=== PATIENT | female | born 1980 | race Caucasian/White ===

== ENCOUNTER 2016-08-26 00:01 | Emergency (ER) | payer OTHER ==
[~2016-08-26] VITALS: Ht 157.5 cm; Wt 84.1 kg
[2016-08-26 00:03] VITALS: BP 125/72; PULSE 107; RESP 16; O2SAT 98
--- NOTE | 2016-08-26 00:23 | ED.REPORT ---
HPI-General Illness Date of Service Aug 26, 2016 ED Provider: Conner Washington MD Patient is a 36 year old female with a history of asthma who presents to the ED with flu-like symptoms for the past 2 weeks. The patient has been using an inhaler at home for her persistent cough. She reports vomiting 2x due to cough and states that she is unable to sleep. She reports associated sore throat, nasal congestion, headache, and hoarse voice. She denies a fever or ear pain. Nursing Notes Stated Complaint: COUGH Chief Complaint: FLU/Cold Symptoms Nursing Notes Reviewed: Yes Allergies: Coded Allergies: prochlorperazine (Verified Allergy, Severe, MOUTH SWELLS, 08/26/16) Kiwi (Verified Allergy, Intermediate, TONGUE SWELLING, 08/26/16) Wheat (Verified Allergy, Intermediate, INTOLERANCE, 08/26/16) latex (Verified Allergy, Intermediate, LOCALIZED RASH, 08/26/16) omeprazole (Verified Allergy, Intermediate, ITCHING OF MOUTH, 08/26/16) pineapple (Verified Allergy, Intermediate, TONGUE SWELLING, 08/26/16) Penicillins (Verified Allergy, Unknown, FAMILY STRONG REACTION, 08/26/16) Scheduled Prednisone (PredniSONE) 20 Mg Tablet 60 MG PO DAILY Scheduled PRN Benzonatate (Tessalon Perle) 100 Mg Capsule 200 MG PO TID PRN PRN For Cough General Time Seen by MD: 00:23 Chief Complaint Cough, Flu-like illness Hx Obtained From: Patient Arrived By: Walk-in Sudden in Onset?: No Onset Occurred: More than a week ago... (2 weeks) Symptom Duration: Waxes and wanes Location: : Head Quality: Painful Severity: Current: Mild Severity: Maximum: Mild Recent Healthcare: No recent doctor visit, No recent hospitalization Past Medical History Past Medical History Reports: Asthma Past Surgical History none reported Smoking History Unknown if Ever Smoker Social History Alcohol Use: "Social" Other Social History: Good social support, Local resident Ambulatory Status Independent Review of Systems Full Review of Systems Constitutional: Denies: Fever Ears / Nose / Throat: Reports: Nasal congestion, Sore throat, Denies: Earache bilateral Respiratory: Reports: Non-productive cough Neurologic: Reports: Headache Complete sys rev & neg: except as marked. Physical Exam Vital Signs Vital Signs Date Time Temp Pulse Resp B/P Pulse Ox O2 Delivery O2 Flow Rate FiO2 08/26/16 02:17 96 20 112/72 99 Room Air 08/26/16 01:24 72 18 99 Room Air 08/26/16 00:03 36.6 107 16 125/72 98 Room Air Initial VS: Reviewed Neck: Supple, Full range of motion Abdomen / GI: Soft, Non-tender, No guarding, No rebound Extremities: Vascular intact, Neuro intact, No swelling Skin: Warm, Dry, No cyanosis Neurologic: Alert, Oriented, Nonfocal Psychiatric: Mood/affect normal, Behavior normal, Normal thought content General/Constitutional: Awake, Alert, No acute distress Head / Eyes: Normocephalic, PERRL, Conjunctiva NL ENT: Airway patent, Pharynx NL, Tympanic membs NL Respiratory / Chest: Breath sounds NL, Breath sounds = bilat, No respiratory distress, No rales, No rhonchi, No wheezing harsh bronchospastic cough Cardiovascular: Heart rate NL, Regular rhythm, Heart sounds NL Re-Eval/Medical Decision Med Decision/Clinical Course 36-year-old with background of low-grade asthma presents with an upper respiratory infection and increased asthma symptoms. Improved here with very home with brief prednisone course, continue albuterol, but no indication for antibiotics. Source of Hx: Old records Time of Eval: 02:15 Patient Status: Condition improved Re-Evaluation/Progress Note: Patient is improved after breathing treatment. Patient understands and agrees with the plan to be discharged home. Discharge instructions and follow-up discussed. All questions were addressed. Return to the ED warnings given. Counseled Regarding: Diagnosis, Need for follow-up, When/why to return to ED Discharge & Departure Primary Impression: Reactive airway disease Asthma severity: mild intermittent Asthma complication type: with acute exacerbation Qualified Code: J45.21 - Mild intermittent asthma with (acute) exacerbation Disposition: Home Discharge Condition All VS Reviewed: Yes Condition: Stable Patient Instructions: Reactive Airways Disease (ED) Additional Instructions: Prednisone three tabs daily for five days Continue albuterol two puffs with spacer every four hours for cough Tessalon Perles three times daily if needed for cough. Follow up with your doctor in the office. Return if any worsening of her breathing or other new issues of concern Referrals: Sola Orellana MD (PCP) Scribe Attestation Portions of this note were transcribed by Yesenia Freedman. IDr. Washington personally performed the history, physical exam and medical decision-making; I reviewed and confirmed the accuracy of the information in the transcribed note. Signed by: Bartolome Lin, 08/26/2016 0217 copies to: Sola Orellana MD, Christopher W MD Aug 26, 2016 00:23 Yesenia Freedman Aug 26, 2016 00:43
[2016-08-26] MEDS ORDERED: Albuterol-Ipratropium 3 mL Inhalation Solution NEB ONE (01:15)
[2016-08-26] MEDS ORDERED: Albuterol 2.5 mg/3 mL Inhalation Solution NEB ONE (01:15)
[2016-08-26 01:24] VITALS: PULSE 72; RESP 18; O2SAT 99
[2016-08-26] MEDS ORDERED: BENZ-12 PO (02:03)
[2016-08-26] MEDS ORDERED: Dexamethasone 20 mg/2 mL Oral Solution PO ONE (02:05)
[2016-08-26] MEDS ORDERED: PRE20 PO (02:05)
[2016-08-26 02:17] VITALS: BP 112/72; PULSE 96; RESP 20; O2SAT 99
== END 2016-08-26 02:19 | disposition home or self-care (01) ==
LOC: SED 00:01
DX: J45.21 Mild intermittent asthma with (acute) exacerbation (principal); Z88.8 Allergy status to other drugs, medicaments and biological substances; Z88.0 Allergy status to penicillin
CPT/HCPCS: 94644; 99284; J7613; J7620

== ENCOUNTER 2016-09-02 21:46 | Emergency (ER) | payer OTHER ==
[~2016-09-02] VITALS: Ht 157.5 cm; Wt 85.5 kg
[~2016-09-02 21:46] MED LIST: BENZ-12 PO; PRE20 PO
[2016-09-02 21:55] VITALS: BP 126/77; PULSE 92; RESP 16; O2SAT 99
[2016-09-02 22:38] LABS: BASOPHILS % (AUTO) 0.2 % (0-3); EOSINOPHILS % (AUTO) 0.9 % (0-5); MONOCYTES % (AUTO) 6.8 % (4-12); Mean Corpuscular Hemoglobin 27.2 pg (27.0-35.0); Mean Corpuscular Volume 83.3 fL (81-100); NEUTROPHILS % (AUTO) 62.4 % (40-74); Platelet Count 279 bil/L (150-400)
[2016-09-02 23:00] LABS: Magnesium 2.4 mg/dL (1.6-2.6)
--- NOTE | 2016-09-02 23:08 | ED.REPORT ---
HPI-Abd Pain F Under 40 Date of Service Sep 02, 2016 ED Provider: Jose Goyal MD Pt is a 36 year old female presenting to the ED complaining of severe abdominal pain onset after taking Prednisone. Associated symptoms include a headache. She was seen in the ER 1 week ago for an upper respiratory virus and started on Prednisone. Pt was seen in this morning for similar symptoms and had a negative strep test. She reports taking Zantac and Mylanta without relief. Nursing Notes Stated Complaint: UPSET STOMACH Chief Complaint: Female Abdominal Pain Nursing Notes Reviewed: Yes Allergies: Coded Allergies: prochlorperazine (Verified Allergy, Severe, MOUTH SWELLS, 09/02/16) Kiwi (Verified Allergy, Intermediate, TONGUE SWELLING, 09/02/16) Wheat (Verified Allergy, Intermediate, INTOLERANCE, 09/02/16) latex (Verified Allergy, Intermediate, LOCALIZED RASH, 09/02/16) omeprazole (Verified Allergy, Intermediate, ITCHING OF MOUTH, 09/02/16) pineapple (Verified Allergy, Intermediate, TONGUE SWELLING, 09/02/16) Penicillins (Verified Allergy, Unknown, FAMILY STRONG REACTION, 09/02/16) Scheduled Prednisone (PredniSONE) 20 Mg Tablet 60 MG PO DAILY Sucralfate Susp (Carafate Susp) 1 Gm/10 Ml Oral.susp 1 GM PO QID Scheduled PRN Benzonatate (Tessalon Perle) 100 Mg Capsule 200 MG PO TID PRN PRN For Cough General Time Seen by MD: 23:00 Chief Complaint Abdominal pain Hx Obtained From: Patient Arrived By: Walk-in Sudden in Onset?: No Onset Occurred: Yesterday Symptom Duration: Since onset Progression since Onset: Constant Location: : Diffuse Quality: Burning, Painful Radiation: : Does not radiate Severity: Current: Severe Severity: Maximum: Severe Recent Healthcare: No recent hospitalization, Recent doctor visit Similar Sx Previous: No Past Medical History Past Medical History Reports: Asthma Past Surgical History none reported Smoking History Unknown if Ever Smoker Social History Alcohol Use: "Social" Other Social History: Good social support, Local resident Ambulatory Status Independent Review of Systems Respiratory: Denies: Shortness of breath, Wheezing GI: Reports: Abdominal pain, Denies: Vomiting Complete sys rev & neg: except as marked. Neurologic: Reports: Headache Physical Exam Initial Vital Signs Vital Signs (First) Date Time Temp Pulse Resp B/P Pulse Ox O2 Delivery O2 Flow Rate FiO2 09/02/16 21:55 36.1 92 16 126/77 99 Room Air Initial VS: Reviewed, Vital signs normal Head / Eyes: Atraumatic, Normocephalic, PERRL ENT: Mucous membranes moist, Conjunctiva normal, No scleral icterus Neck: Supple, Non-tender, Full range of motion Extremities: Vascular intact, Neuro intact, No swelling, No tenderness Skin: Warm, Dry, No cyanosis Neurologic: Alert, Oriented, Nonfocal Psychiatric: Mood/affect normal, Behavior normal, Normal thought content General/Constitutional: Awake, Alert, No acute distress, Well appearing, Well hydrated Respiratory / Chest: Breath sounds NL, Breath sounds = bilat, No respiratory distress, No rales, No rhonchi, No wheezing Cardiovascular: Heart rate NL, Regular rhythm, Heart sounds NL Abdomen: No guarding, No rebound Tenderness/Guarding/Rebound: Positive: Tender epigastric (Very slight) Interpretation & Diagnostics Lab Results Interpretation Result Diagram: 09/02/16222409/02/162224 Test 09/02/16 22:25 09/02/16 23:09 White Blood Count 12.0th/mm3 (3.8-10.1) Red Blood Count 4.67mil/mm3 (3.90-5.20) Hemoglobin 12.7g/dL (12.0-15.6) Hematocrit 38.9% (35.0-46.0) Mean Corpuscular Volume 83.3fL (81-100) Mean Corpuscular Hemoglobin 27.2pg (27.0-35.0) Mean Corpuscular Hemoglobin Concent 32.6% (32.0-37.0) Red Cell Distribution Width 13.4% (12.3-15.4) Platelet Count 279bil/L (150-400) Neutrophils (%) (Auto) 62.4% (40-74) Lymphocytes (%) (Auto) 29.3% (14-46) Monocytes (%) (Auto) 6.8% (4-12) Eosinophils (%) (Auto) 0.9% (0-5) Basophils (%) (Auto) 0.2% (0-3) Sodium Level 139mEq/L (134-144) Potassium Level 4.0mEq/L (3.5-5.2) Chloride Level 102mEq/L (97-108) Carbon Dioxide Level 27mmol/L (18-29) Blood Urea Nitrogen 10mg/dL (6-20) Creatinine 0.66mg/dL (0.57-1.00) Estimat Glomerular Filtration Rate 145mL/min (>59) Glucose Level 90mg/dL (60-99) Calcium Level 8.1mg/dL (8.5-10.1) Magnesium Level 2.4mg/dL (1.6-2.6) Total Bilirubin 0.7mg/dL (0.0-1.2) Aspartate Amino Transf (AST/SGOT) 15U/L (0-50) Alanine Aminotransferase (ALT/SGPT) 15U/L (0-32) Alkaline Phosphatase 59U/L (25-150) Total Protein 6.4g/dL (6.4-8.4) Albumin 3.8g/dL (3.4-5.0) Lipase 28U/L (13-60) Hold Petty Top Tube Received (Received) Hold Urine Received (Received) Lab Results Interpretation: Mildly elevated white blood count Re-Eval/Medical Decision Med Decision/Clinical Course 36-year-old female with heartburn associated with prednisone use. Stop prednisone and start Carafate and Zantac. I do not suspect more serious illness at this time. Re-Evaluation/Progress : Time of Eval: 00:04 Patient Status: Condition improved Re-Evaluation/Progress Note: Pt pain is slightly improved. She reports that the burning goes all the way from her stomach up her throat. Discussed plan for discharge. Pt understands and agrees with plan. Counseled Regarding: Diagnosis, Lab results, Need for follow-up, When/why to return to ED Discharge & Departure Primary Impression: Gastritis Disposition: Home Discharge Condition All VS Reviewed: Yes Condition: Improved Patient Instructions: Gastritis (ED) Additional Instructions: I suspect the your pain is due to gastritis from prednisone. No more prednisone. Carafate 1000 mg 3 times a day, prescription written. Continue ranitidine (Zantac) 150 twice a day. Referrals: Sola Orellana MD (PCP) Scribe Attestation Portions of this note were transcribed by Celia Mendez. I, Dr. Goyal personally performed the history, physical exam and medical decision-making; I reviewed and confirmed the accuracy of the information in the transcribed note. Signed by: Bartolome Carl, 09/02/2016 and 0015. copies to: Sola Orellana MD, Howard L MD Sep 02, 2016 23:08 CELIA MENDEZ Sep 02, 2016 23:16
[2016-09-02] MEDS ORDERED: Alum-Mag Hydrox-Simeth 30 mL Suspension PO ONE (23:15)
[2016-09-02] MEDS ORDERED: Sucralfate 100 mg/mL 10 mL Suspension PO ONE (23:15)
[2016-09-03] MEDS ORDERED: SUCR1ORA2 PO (00:14)
== END 2016-09-03 00:33 | disposition home or self-care (01) ==
LOC: SED 21:46
DX: K29.70 Gastritis, unspecified, without bleeding (principal); R51 Headache; J45.909 Unspecified asthma, uncomplicated; Z88.0 Allergy status to penicillin; Z88.8 Allergy status to other drugs, medicaments and biological substances; Z91.040 Latex allergy status; Z91.018 Allergy to other foods